=== PATIENT | female | born 1995 | race Caucasian/White ===

== ENCOUNTER → 2021-04-16 | Outpatient (CLI) | payer OTHER ==
--- NOTE | 2021-04-16 16:38 | Diagnostic Imaging Report ---
PROCEDURE: CT urinary tract, rule out kidney stone. TECHNIQUE: Multiple contiguous axial images were obtained through the abdomen and pelvis without the use of intravenous contrast. Auto Exposure Controls were utilized during the CT exam to meet ALARA standards for radiation dose reduction. INDICATION: Left flank pain. Microhematuria. Fever. Vomiting. COMPARISON: None. FINDINGS: The included portions of the lung bases are clear. CT ABDOMEN: A normal appendix is identified. The small bowel loops are nondistended. Punctate nonobstructive renal calculi are identified on the left. No ureteral calculi are seen on either side. Additionally, there is no hydroureteronephrosis or other evidence of obstruction. No renal masses are seen on this noncontrast study. The adrenal glands, spleen, pancreas, and liver have an unremarkable noncontrast CT appearance. There is no loculated fluid collection, free fluid, or free air within the abdomen. No abnormal mesenteric or retroperitoneal abdominal adenopathy is seen. The osseous structures show no acute abnormalities. CT PELVIS: The urinary bladder is unopacified. No calculi are seen within the urinary bladder. There is a trace amount of free fluid within the pelvis. There is, however, no loculated air-fluid collection or free air. Multiple enlarged bilateral inguinal and iliac chain lymph nodes are identified. The largest of these is seen medial to the left acetabulum and measures 1.3 x 2.2 cm. The osseous structures show no acute abnormalities. IMPRESSION: 1. Multiple punctate nonobstructive left renal calculi. 2. No ureteral calculi, hydroureteronephrosis, or other evidence of obstruction. 3. Abnormally enlarged bilateral inguinal and iliac chain lymph nodes. While these may be on an infectious or inflammatory reactive basis, an underlying metastatic or neoplastic lymphoproliferative process cannot be excluded. An enlarged lymph node in the right inguinal region does appear to be in a position amenable to ultrasound-guided biopsy. CT/PET may be of benefit as well. 4. Small amount of free fluid within the pelvis, possibly physiologic. Dictated by: Dictated on workstation # [id number]
== END ==
LOC: RAD 16:00
PROVIDERS: ATTEND Physician Assistant
DX: N20.0 Calculus of kidney (principal); R59.0 Localized enlarged lymph nodes
CPT/HCPCS: 74176

== ENCOUNTER → 2021-04-21 | Outpatient (CLI) | payer OTHER ==
--- NOTE | 2021-04-21 17:00 | Diagnostic Imaging Report ---
US SPLEEN [id number] INDICATION: Left upper quadrant pain with dehydration and vomiting COMPARISON: CT of the abdomen and pelvis from 04/16/2021 TECHNIQUE: Targeted grayscale and color Doppler imaging of the left upper quadrant was performed. FINDINGS: The spleen measures 10 x 6 cm and has normal-appearing blood flow to it. There is no focal splenic lesion. No ascites within the left upper quadrant. No loculated fluid collection. There is a region measured by the technologist that shows a lymph node which was better evaluated on recent CT. IMPRESSION: 1. Spleen is normal in size and without focal abnormality. Dictated by: Dictated on workstation # [id number]
== END ==
LOC: RAD 14:16
PROVIDERS: ATTEND Nurse Practitioner Family
DX: E86.0 Dehydration (principal); N39.0 Urinary tract infection, site not specified; B27.89 Other infectious mononucleosis with other complication; R10.12 Left upper quadrant pain; R19.8 Other specified symptoms and signs involving the digestive system and abdomen; Z20.828 Contact with and (suspected) exposure to other viral communicable diseases
CPT/HCPCS: 76705

== ENCOUNTER 2021-05-17 09:40 | Emergency (ER) | payer OTHER ==
[~2021-05-17] VITALS: Ht 167 cm; Wt 61.2 kg
--- NOTE | 2021-05-17 11:09 | Diagnostic Imaging Report ---
Exam: Left forearm radiograph Exam date: 05/17/2021 COMPARISON: 05/17/2021 HISTORY: Forearm pain. TECHNIQUE: 2 views left forearm. FINDINGS: There is cortical irregularity seen within the radial head. No other acute fracture, dislocation, or destructive osseous process is seen. The joint spaces are preserved. Soft tissues are normal. IMPRESSION: Likely radial head fracture better seen on the same day elbow radiograph. No other acute osseous abnormality in the left forearm. Dictated by: Dictated on workstation # [id number]
--- NOTE | 2021-05-17 11:09 | Diagnostic Imaging Report ---
Exam: Left elbow radiograph Exam date: 05/17/2021 COMPARISON: None. HISTORY: Left elbow pain. TECHNIQUE: 3 views of the left elbow. FINDINGS: There is an acute, mildly displaced fracture of the radial head. Joint spaces are preserved. Soft tissues are normal. There is a small posterior elbow effusion. IMPRESSION: Acute mildly displaced fracture of the radial head. Dictated by: Dictated on workstation # [id number]
[2021-05-17] MEDS ORDERED: ACETAMINOPHEN 325 MG TABLET PO ONE (11:30)
[2021-05-17] MEDS ORDERED: ACHD5005 PO (12:02)
--- NOTE | 2021-05-17 12:04 | ED Upper Extremity ---
General Chief Complaint: Upper Extremity Stated Complaint: FALL/LEFT ARM INJURY Nursing Triage Note: PT PRESENTS TO ED VIA POV FROM HOME WITH COMPLAINTS OF L ELBOW/FOREARM PAIN AFTER FALLING AND INJURING HER ARM WHILE ICE SKATING LAST NIGHT. PT REPORTS SHE TOOK IBUPROFEN AT 0730 THIS AM. Source: patient Exam Limitations: no limitations History of Present Illness Date Seen by Provider: May 17, 2021 Time Seen by Provider: 10:10 Allergies and Home Medications Allergies Coded Allergies: Sulfa (Sulfonamide Antibiotics) (Verified Allergy, Unknown, 05/17/21) amoxicillin (Verified Allergy, Unknown, 05/17/21) clavulanic acid (Verified Allergy, Unknown, 05/17/21) Past Azgpbzf-Lutvqa-Ntcqgv Hx Patient Social History Tobacco Use?: No Substance use?: No Alcohol Use?: Yes Alcohol Frequency: Rarely Pt feels they are or have been: No Immunizations Up To Date First/Initial COVID19 Vaccinat: AUGUST 2020 Second COVID19 Vaccination [place]: SEPTEMBER 2020 COVID19 Vaccine Cycle Manager: MODERNAmarilys Past Medical History Surgery/Hospitalization HX: SX: WISDOM TEETH, T/A PMH: IBS, MONO Physical Exam Vital Signs Vital Signs - First Documented 05/17/21 09:50 Temp 36.6 Pulse 105 Resp 20 B/P (MAP) 114/87 (96) Pulse Ox 97 Capillary Refill : Less Than 3 Seconds Height, Weight, BMI Height: '" Weight: lbs. oz. kg; 21.00 BMI Method: Progress/Results/Core Measures Results/Orders My Orders Orders - MILAGROS RODRÍGUEZ MD Forearm, Left, 2 Views (05/17/21 10:14) Elbow, Left, 3 Views (05/17/21 10:14) Acetaminophen Tablet/Caplet (Tylenol T (05/17/21 11:30) Medications Given in ED Current Medications Medications Dose Ordered Sig/Hayley Route Start Time Stop Time Status Last Admin Dose Admin Acetaminophen 650 mg ONCE ONCE PO 05/17/21 11:30 05/17/21 11:31 DC 05/17/21 11:28 650 MG Vital Signs/I&O 05/17/21 09:50 Temp 36.6 Pulse 105 Resp 20 B/P (MAP) 114/87 (96) Pulse Ox 97 Blood Pressure Mean: 96 Departure Impression Primary Impression: Radial head fracture, closed Qualified Codes: S52.122A - Displaced fracture of head of left radius, initial encounter for closed fracture Additional Impression: Fall on same level as cause of accidental injury Disposition: 01 HOME, SELF-CARE Condition: Improved Departure-Patient Inst. Decision time for Depature: 11:59 Referrals: TASHA KUHN MD (PCP/Family) Primary Care Physician ELIZABETH OCONNOR MD, TERRY D MD ZAFUTA, MICHAEL P MD Patient Instructions: Elbow Fracture, Adult ED, How to Use a Shoulder Sling ED Add. Discharge Instructions: Keep your elbow in the sling as much as possible. Do not attempt to straighten your arm while it is in the splint. Follow-up with orthopedic provider of your choice by phone on Wednesday to arrange a follow-up appointment. Use your hydrocodone as prescribed. You may wish to use an rzkr-nbs-axzjvoh stool softener such as Colace while on hydrocodone to prevent constipation. Icing in 20-minute intervals may also be helpful in reducing pain and swelling. You may elevate on a soft surface such as pillows when able. Call with questions or concerns. Return to the ER if you have worsening symptoms. All discharge instructions reviewed with patient and/or family. Voiced understanding. Scripts Hydrocodone/Acetaminophen (Hydrocodone-Acetamin 5-325 mg) 1 Each Tablet 1 TAB PO Q4H PRN for PAIN-MODERATE (5-7), #20 TAB Prov: MILAGROS RODRÍGUEZ MD 05/17/21 MILAGROS RODRÍGUEZ MD May 17, 2021 12:04
[2021-05-17 12:20] VITALS: BP 120/84
== END 2021-05-17 12:20 | disposition home or self-care (01) ==
LOC: EDUNIT# 09:40 → ER 09:43
DX: S52.122A Displaced fracture of head of left radius, initial encounter for closed fracture (principal); V00.131A Fall from skateboard, initial encounter
CPT/HCPCS: 29125; 73080; 73090; 99284; A4565